=== PATIENT | female | born 1990 | race African-American/Black ===

== ENCOUNTER 2018-09-13 12:07 | Day surgery (SDC) | payer BC, OTHER ==
[~2018-09-13] VITALS: Ht 167.6 cm; Wt 109.4 kg
[~2018-09-13 12:07] MED LIST: ADV10050; CEPH-443 PO; OMEP40CA6
[2018-09-13 13:33] VITALS: Ht 167.6 cm; Wt 109.4 kg
[2018-09-13] MEDS ORDERED: ALBU2.5V3 NEB (13:39)
[2018-09-13] MEDS ORDERED: FLOVENT (13:39)
[2018-09-13] MEDS ORDERED: PROPOFOL 200 MG INJ ONE (14:15)
[2018-09-13] MEDS ORDERED: ALBUTEROL 0.083% (NEB) 2.5 MG/3 ML AMP HHN STA (15:56)
[2018-09-13] MEDS ORDERED: ALBUTEROL 0.083% (NEB) 2.5 MG/3 ML AMP ONE (16:05)
[2018-09-13] MEDS ORDERED: MIDAZOLAM 1 MG/ML 2 ML INJ ONE (16:17)
[2018-09-13] MEDS ORDERED: LIDOCAINE 4% SOLUTION 50 ML BTL ONE (16:17)
[2018-09-13] MEDS ORDERED: PROPOFOL 60 ML ONE (16:17)
[2018-09-13] MEDS ORDERED: FENTAnyl 50 MCG/ML VIAL ONE (16:17)
[2018-09-13 16:18] VITALS: BP 181/107; PULSE 112; RESP 22
--- NOTE | 2018-09-13 16:45 | PREAC ---
Date/Time of Note Date/Time of Note DATE: 09/13/18 TIME: 16:44 Anesthesia Eval and Record Evaluation Time Pre-Procedure Interview DATE: 09/13/18 TIME: 16:44 Age 27 Sex female NPO: 8 hrs Preoperative diagnosis gerd Planned procedure egd Past Medical History Past Medical History: Includes Pulm: Asthma GI: Obesity, Morbid obesity Surgery & Anesthesia Issues No known issue Meds Anticoagulation: No Beta Idandra within 24 hr: No Reason Beta Diandra not given: Pt. not on B-Diandra Reported Medications Albuterol Sulfate* (Albuterol Sulfate* Neb) 0.083%-3 Ml Neb, 1.25 MG NEB Q3H PRN for WHEEZING AND SOB, #30 VIAL 09/13/18 [Flovent] No Conflict Check 09/13/18 Discontinued Reported Medications Omeprazole* (Omeprazole*) 40 Mg Capsule. 08/12/12 Salmeterol Xinaf/Fluticasone* (Advair 100/50 Diskus*) 1 Inh Inha 08/12/12 Discontinued Scripts Cephalexin* (Keflex*) 500 Mg Capsule, 500 MG PO QID for 7 Days, CAP Prov:ELIANA MORENO PA-C 09/07/15 Meds reviewed: Yes Allergies Coded Allergies: No Known Allergy (Unverified , 09/07/15) Allergies Reviewed: Yes Labs/Studies Labs Reviewed: Reviewed by anesthesiologist test: Negative Pre-procedure Exam Last vitals Vital Signs Date Temp Pulse Resp B/P (MAP) Pulse Ox O2 O2 Flow FiO2 Time Delivery Rate 09/13/18 96.8 112 22 181/107 95 Room Air 16:18 (131) 09/13/18 21 16:07 Airway: Adequate mouth opening, Adequate thyromental dist Mallampati: Mallampati IV Teeth: Normal Lung: Normal Heart: Normal ASA Physical Status ASA physical status: 2 Emergency: None Pre-operative Attestations Prior to commencing anesthesia and surgery, the patient was re-evaluated, there was verification of: *The patient's identity *The results of appropriate recent lab work and preoperative vital signs *The above evaluation not changing prior to induction *Anesthetic plan, risk benefits, alternative and complications discussed with patient/family; questions answered; patient/family understands, accepts and wishes to proceed. SANDY ARRIETA DO Sep 13, 2018 16:45
--- NOTE | 2018-09-13 16:46 | PAC ---
Date/Time of Note Date/Time of Note DATE: 09/13/18 TIME: 16:45 Post-Anesthesia Notes Post-Anesthesia Note Last documented vital signs Vital Signs Date Temp Pulse Resp B/P (MAP) Pulse Ox O2 O2 Flow FiO2 Time Delivery Rate 09/13/18 98 95 22 140/63 99 Room Air 16:18 09/13/18 21 16:07 Activity: WNL Respiratory function: WNL Cardiovascular function: WNL Mental status: Baseline Pain reasonably controlled: Yes Hydration appropriate: Yes Nausea/Vomiting absent: Yes SANDY ARRIETA DO Sep 13, 2018 16:46
[2018-09-13 17:05] VITALS: BP 151/78; PULSE 101
== END 2018-09-13 17:43 | disposition home or self-care (01) ==
LOC: GIL 12:07
PROVIDERS: ATTEND Internal Medicine Gastroenterology
DX: K29.30 Chronic superficial gastritis without bleeding (principal); K20.9 Esophagitis, unspecified
CPT/HCPCS: 43239; 84703; 88305; 88312; 94664; J2250; J3010; Z7610